=== PATIENT | male | born 1985 | race Caucasian/White ===

== ENCOUNTER 2022-10-16 08:56 | Outpatient (AMB) | payer OTHER, SELFPAY ==
--- NOTE | 2022-10-16 08:56 | A.OFFPC_ITS ---
Vital Signs 10/16/22 08:57 Height 5 ft 2 in Weight 113 lb BMI 20.7 BP 108/62 Blood Pressure Location Lt brachial Position Sitting Pulse 96 Pulse Source Pulse Oximeter Pulse Oximetry (%) 96 Oxygen Delivery Method Room Air Intake Visit Reasons: foot pain Left from [facility] 09/09/2022 Allergies duloxetine Allergy (Unknown, Verified 10/16/22 09:09) depression Medication List - Last Reconciled 10/16/22 by Odilon Rocha PA-C meloxicam 7.5 mg PO DAILY 30 days Tobacco use date assessed: 10/02/22 HPI foot pain Left from [facility] 09/09/2022 HPI Details That is is a 36-year-old male here today for follow-up on left foot trauma. Was seen previously by PCP and refer to Podiatry and physical therapy. Worker's Comp claim. He reports in August of 2022 having a left foot injury where a piece 150 lb she metal fell on his left foot. Was seen at a local urgent care and gotten x-rays without evidence of fractures. CT was done recently though unable to view images at this time. He is a still waiting podiatry evaluation and physical therapy. He reports he is unable to do his job at this time as he continues to have pain with full weight-bearing on his left foot. [facility] Family History Other FH: mental illness Social History Housing: Apartment Patient Tobacco Use Status: Current everyday Tobacco user e-Cigarette/Vaping Use: Never Used service: No Current occupational status: employed Cognitive needs: No Hearing needs: No Vision needs: No Questionnaire PHQ-9 Over the last 2 weeks, how often have you been bothered by any of the following problems? 1. Little interest or pleasure in doing things: several days 2. Feeling down, depressed, or hopeless: nearly every day 3. Trouble falling or staying asleep, or sleeping too much: nearly every day 4. Feeling tired or having little energy: more than half the days 5. Poor appetite or overeating: nearly every day 6. Feeling bad about yourself - or that you are a failure or have let yourself or your family down: several days 7. Trouble concentrating on things, such as reading the newspaper or watching television: several days 8. Moving or speaking so slowly that other people could have noticed. Or the opposite - being so fidgety or restless that you have been moving around a lot more than usual: not at all 9. Thoughts that you would be better off or of hurting yourself in some way: several days Total score: 15 Source: Developed by Drs. Joe You, Lorrie Ba, Jeronimo Kay and colleagues, with an educational shaye from [employer]. Thrive Questionnaire Date Thrive assessed: 10/02/22 I am a: Patient What is your living situation today?: I have a steady place to live Within the past 12 months, did the food you bought not last and you didn't have the money to get more?: Never true Within the past 12 months, did you worry whether your food would run out before you got money to buy more?: Never true Do you have trouble paying for medicines?: Yes Do you have trouble getting transportation to medical appointments?: Yes Do you have trouble paying your heating and electricity bill?: No Do you have trouble taking care of your child, family member or friend?: No Do you have trouble with day-to-day activities such as bathing, preparing meals, shopping, managing finances, etc.?: No Are you currently unemployed and looking for a job?: No Are you interested in more education?: No Currently or been in a relationship where the following occur: no concerns reported AUDIT C Alcohol Use Questionnaire (AUDIT-C) 1. How often do you have a drink containing alcohol?: Never 3. How often do you have six or more drinks on one occasion?: Never Total Score: 0 FARTUN-7 AMB Questionnaire FARTUN-7 Date FARTUN - 7 assessed: 10/02/22 Feeling nervous, anxious, or on edge: 3 = Nearly every day Not being able to stop or control worryin = Nearly every day Worrying too much about different things: 3 = Nearly every day Trouble relaxin = Nearly every day Being so restless that it is hard to sit still: 2 = More than half the days Becoming easily annoyed or irritable: 2 = More than half the days Feeling afraid as if something awful might happen: 3 = Nearly every day Total FARTUN-7 score (0-4 normal; 5-9 mild; 10-14 moderate; 15-21 severe): 19 Source: Developed by Drs. Joe You, Lorrie Ba, Jeronimo Kay and colleagues, with an educational shaye from [employer]. Review of Systems Const Denies headache(s) Eyes Denies loss of vision ENT Denies vertigo, Denies dizziness, Denies headache(s) and Denies sore throat Card Denies chest pain, Denies leg edema and Denies lightheadedness Resp Denies cough, Denies hemoptysis and Denies wheezing GI Denies abdominal pain, Denies melena, Denies constipation, Denies diarrhea and Denies vomiting Denies dysuria, Denies urinary frequency and Denies urinary urgency Musc Denies arthralgias, Denies joint swelling, Denies numbness and Denies tingling Neuro Denies Abnormal speech present, Denies behavioral changes, Denies vertigo, Denies dizziness, Denies headache(s), Denies loss of vision, Denies memory loss, Denies numbness and Denies tingling Psych Denies anxiety, Denies behavioral changes, Denies depression, Denies memory loss and Denies panic attacks Saud/Lymph Denies easy bleeding and Denies easy bruising Aller/Immun Denies wheezing Physical exam (Primary Care) Vital Signs: Last Vital Signs Pulse 96 10/16/22 08:57 BP 108/62 10/16/22 08:57 Pulse Ox 96 10/16/22 08:57 Oxygen Delivery Method Room Air 10/16/22 08:57 BMI result Body Mass Index 20.7 Tobacco/Smoking Status: Tobacco use Status Tobacco use date assessed 10/02/22 10/16/22 08:56 Patient Tobacco Use Status Current everyday Tobacco 10/16/22 08:56 e-Cigarette/Vaping Use Never Used 10/16/22 08:56 PHQ-9: PHQ-9 Score PHQ-9: Total score 15 10/16/22 09:31 Thrive Assessment: Date of Thrive Assessment Date Thrive assessed 10/02/22 10/16/22 08:56 Currently or been in a relationship where the following occur: no concerns reported Const General: healthy appearing, no acute distress, alert and awake Nutritional Appearance: well nourished Orientation/consciousness: oriented to person, oriented to place and oriented to time HENMT Ears: TM's normal bilaterally General nose exam: Normal nasal mucous membranes and turbinates present Eyes Conjunctivae: conjunctivae normal Sclerae: sclerae normal Pupils: Equal, round and reactive pupils present Neck Neck: Yes no lymphadenopathy and Yes no JVD Thyroid: Thyroid normal Carotids: no bruits Resp Effort & Inspection: normal respiratory effort and not tachypneic Auscultation: no crackles, no rales, no rhonchi and no wheezes Cardio Rate: regular rate Rhythm: regular rhythm Heart sounds: no murmurs and normal S1 and S2 GI Palpation (GI): Soft to palpation, nontender, no hepatomegaly and no splenomegaly Auscultation: normal bowel sounds Skin General skin exam: no rashes or lesions noted and dry skin Neuro General: oriented to person, oriented to place and oriented to time Cranial nerves: Yes Equal, round and reactive pupils present Speech: No Abnormal speech present Gait exam (Neuro): Normal gait present Motor exam (neuro): no tremor noted Extrem Right upper extremity: full ROM Left upper extremity: full ROM Right lower extremity: full ROM; no edema Left lower extremity: full ROM; no edema Ankle/foot/toe images: 1. PAIN REPORTED IN THE AREA OUTLINED. NO NOTABLE ERYTHEMA OR EDEMA IN THE MIDFOOT AT THIS TIME.. NO DISTAL VASCULAR OR NEUROLOGICAL COMPROMISE NOTED ON PHYSICAL EXAM Psych Mental Status: mental status grossly normal Speech and movement: Normal speech and movement present Affect: normal affect Attitude: cooperative Thought process: Normal thought process present Assessment and Plan Assessment & Plan (1) Strain of tendon of left foot: Code(s): S96.912A - Strain of unspecified muscle and tendon at ankle and foot level, left foot, initial encounter Plan: Patient's signs and symptoms most consistent with a left tendon injury secondary to blunt force trauma which has happened at work. No fractures on x-ray. Advised on conservative therapy such as elevation, cool compress, use of NSAIDs for swelling and pain. Will supply patient with air cast boot and advised to use crutches to minimize his weight-bearing on left foot to promote healing. Advised to follow-up with dietary for evaluation and recommendations are in returning to work. (2) Foot trauma: Code(s): S99.929A - Unspecified injury of unspecified foot, initial encounter Qualifiers: Encounter type: subsequent encounter Laterality: left Qualified Code(s): S99.922D - Unspecified injury of left foot, subsequent encounter Plan: As above, worker's Comp claim due to left crush injury. Awaiting to be evaluated by Podiatry Coding Level of Care Code Est Pt Level 3 (09157) Diagnoses Strain of tendon of left foot S96.912A Foot trauma S99.922D Encounter type: subsequent encounter Laterality: left
[2022-10-16 08:57] VITALS: BP 108/62; PULSE 96; O2SAT 96; BMI 20.7
== END 2022-10-16 09:42 | disposition home or self-care (01) ==
PROVIDERS: PCP Physician Assistant; Visit Provider Physician Assistant
DX: S96.912A Strain of unspecified muscle and tendon at ankle and foot level, left foot, initial encounter (principal); Z04.2 Encounter for examination and observation following work accident
CPT/HCPCS: 99213

== ENCOUNTER 2022-11-24 08:09 | Outpatient (AMB) | payer OTHER, SELFPAY ==
[2022-11-24 08:48] VITALS: BP 106/64; PULSE 94; TEMP 36.6; O2SAT 95; BMI 26.4
--- NOTE | 2022-11-24 08:48 | MHC.OFFWIV ---
Intake Vital Signs 11/24/22 08:48 Height 5 ft 2 in Weight 144 lb 4 oz BMI 26.4 BP 106/64 Blood Pressure Location Lt brachial Position Sitting Pulse 94 Pulse Source Pulse Oximeter Temp 98 F Temp Source Oral Pulse Oximetry (%) 95 Oxygen Delivery Method Room Air Intake Visit Reasons: EP Pain LT foot Intake Note: Pt is here for LT foot pain injury 0n 09/09/22, pt states bone in LT foot still hurts . Patient Tobacco Use Status: Current everyday Tobacco user Allergies duloxetine Allergy (Unknown, Verified 11/24/22 08:49) depression Do you need a note to return to daycare/school/sports/work: Yes HPI EP Pain LT foot HPI Details 36-year-old male presents to the office for a sick visit. Patient had a work injury on 09/09/2022. He injured his left foot and is MRI shows a swollen metatarsals. He has not returned to work since September 09. Today was his 1st a pack and patient is complaining of intense pain when he is driving. Pain is mostly over the left foot and worsens when he presses the clutch. Requesting pain medications. PFSH Family History Other FH: mental illness Social History Housing: Apartment Patient Tobacco Use Status: Current everyday Tobacco user e-Cigarette/Vaping Use: Never Used service: No Current occupational status: employed Cognitive needs: No Hearing needs: No Vision needs: No Physical Exam Vital Signs: Last Vital Signs Temp 98 F 11/24/22 08:48 Pulse 94 11/24/22 08:48 BP 106/64 11/24/22 08:48 Pulse Ox 95 11/24/22 08:48 Oxygen Delivery Method Room Air 11/24/22 08:48 BMI result Body Mass Index 26.4 Extrem Other: Left foot: No visible swelling. Tenderness on palpation of the 1st metatarsal. Assessment & Plan Assessment & Plan (1) Foot pain: Code(s): M79.673 - Pain in unspecified foot Plan: No pain medications provided. Patient was advised to follow-up with the doctor treating him and giving him work restrictions. Work restrictions provided till December 02 when he sees a the other physician again. Coding Level of Care Code Est Pt Level 3 (11667) Diagnoses Foot pain M79.673
== END 2022-11-24 10:20 | disposition home or self-care (01) ==
PROVIDERS: PCP Physician Assistant; Visit Provider Internal Medicine
DX: M79.673 Pain in unspecified foot (principal)
CPT/HCPCS: 99213

== ENCOUNTER 2022-12-30 08:00 | Outpatient (RCR) | payer OTHER, SELFPAY ==
--- NOTE | 2022-11-11 09:46 | MHC.PT.EP ---
[facility] [place] Office [place] Office [place] Office [address] [phone] F: [phone] F: [phone] F: [phone] F: [phone] Physical Therapy Plan of Care Date of Evaluation: Date of Surgery: none Diagnosis: pain in left foot. Assessment: Patient is a 36 year old R handed male who presents with s/s consistent with L foot pain after traumatic injury 2 months ago. He works with daily job demands including metal fabrication. Patient past medical history is unremarkable. Current impairments include pain, gait mechanics, ROM, strength, activity tolerance and functional mobility. Functional limitations include decreased ability to walk, stand, negotiate stairs, transfer and work.. Patient is motivated with good rehab potential. Skilled PT will address impairments and functional limitations in order to achieve goals. Frequency and Duration: The patient will be seen 2x/week for 5 weeks Short Term Goals: I with HEP - 2 weeks restore normal gait mechanics - 3 weeks PF/DF 4+/5 grossly - 3 weeks [employer] Goals: LEFS 60/80 - 5 weeks 2/10 max pain with daily activities - 5 weeks safe return to PLOF and all work duties - 5 weeks Treatment Plan: Modalities to reduce pain, spasms and effusion. Manual therapy to restore motion and function. Therapeutic exercise to improve strength and flexibility. Neuromuscular re-education for posture and balance. Therapeutic activities to return to functional activities of daily living. Electronically signed by: Sen Dillon, PT Please sign and return to therapist. Thank you for your referral.
--- NOTE | 2023-04-14 13:47 | MHC.PT.DC ---
[facility] [place] Office [place] Office [place] Office [address] Elin Boateng [address] [phone] F: [phone] F: [phone] F: [phone] F: [phone] Physical Therapy Discharge Report Diagnosis: pain in left foot. Date of Surgery: none Date of Evaluation: 11/11/22 Date of Discharge: 01/05/23 Treatments to Date: 7 Cancellations to Date: No Shows to Date: Discharge Status: Independent with HEP Discharge Summary: Pt unable to make meaningful progress per his report on his s/s. 12/30/22: pt still have difficulty sustaining meaningful functional progress per his report. we tried US today and will assess progress NV. 12/25/22: pt limiting progressing noting pain and locking in his ankle/foot. we have attempted progress a few times now with strength and more functional activities and he has stopped this attempst due to subjective complaints of pain. 12/11/22: we held on and were unable to progress today due to pain in foot and ankle per patient report. he still maintains very slow pace on upright bike. 12/08/22: pt seems to be limited by pain with all ex. we have had difficulty progressing due to self limiting related to pain. CP to finish. 11/24/22: pt has been sore since last visit. reluctant to try bike. agreed after edu and encouragement. able to perform all activities but does not he has pain with all exercise and activities. 11/20/22: pt in pain after 4 way ankle. educated to keep it pain free as best he can. progressed hip strength today. cautious with specific foot/ankle intervention Patient is a 36 year old R handed male who presents with s/s consistent with L foot pain after traumatic injury 2 months ago. He works with daily job demands including metal fabrication. Patient past medical history is unremarkable. Current impairments include pain, gait mechanics, ROM, strength, activity tolerance and functional mobility. Functional limitations include decreased ability to walk, stand, negotiate stairs, transfer and work.. Patient is motivated with good rehab potential. Skilled PT will address impairments and functional limitations in order to achieve goals. Electronically signed by: Sen Dillon PT Please sign and return to therapist. Thank you for your referral.
== END 2023-04-14 13:47 | disposition home or self-care (01) ==
LOC: HO.PTCHIC 08:00
PROVIDERS: PCP Physician Assistant; Visit Provider Internal Medicine
DX: M79.672 Pain in left foot (principal)
CPT/HCPCS: 97035; 97110; 97112; 97161

== ENCOUNTER 2023-06-25 09:00 | Outpatient (RCR) | payer OTHER, SELFPAY | END 2023-06-25 09:44 | disposition home or self-care (01) | LOC: HO.PTCHIC 09:00 | PROVIDERS: PCP Physician Assistant; Visit Provider Podiatrist Foot & Ankle Surgery | DX: M79.2 Neuralgia and neuritis, unspecified (principal) | CPT/HCPCS: 97110; 97161 ==

== ENCOUNTER 2024-05-06 11:30 | Outpatient (AMB) | payer OTHER, SELFPAY ==
[2024-05-06 11:32] VITALS: BP 102/68; PULSE 100; O2SAT 97
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
--- OUTSIDE RECORDS SUMMARY | 2024-05-06 12:33 | XMS_ITS | Clinical Summary ---
[facility] [address] [place] [address] Care Team Providers Care Contact Assembler Name Role Phone Unavailable Primary Care Provider Unavailabl e Social History Tobacco Use Types Packs/Day Years Used Date Smoking Tobacco: Never Assessed Sex and Gender Information Value Date Recorded Sex Assigned at Not on file Gender Identity Not on file Sexual Orientation Not on file Last Filed Vital Signs Vital Sign Reading Time Taken Comments Blood Pressure 102/67 09/26/2022 11:03 AM EDT Pulse 58 09/26/2022 11:03 AM EDT Temperature - - Respiratory Rate - - Oxygen Saturation - - Inhaled Oxygen Concentration - - Weight 52.2 kg (115 lb) 08/10/2023 9:21 AM EDT Height 165.1 cm (5' 5 ) 08/10/2023 9:21 AM EDT Body Mass Index 19.14 08/10/2023 9:21 AM EDT Plan of Treatment Health Maintenance Due Date Last Done Comments DTaP,Tdap,and Td Vaccines (1 - Tdap) 12/24/2006 Hepatitis B Vaccines (1 of 3 - 19+ 3-dose series) 12/24/2006 Cholesterol Screening (Lipid Panel) 04/28/2023 Depression Screening 04/28/2023 HIV Screening 04/28/2023 Hepatitis C Screening 04/28/2023 Social Influencers of Health Screening 04/28/2023 COVID-19 Vaccine ( - 2023-2 5 season) 2023 Influenza Vaccine (#1) 2023 HIB Vaccines Aged Out No longer eligi ble based on patient's age to complete this topic HPV Vaccines Aged Out No longer eligi ble based on patient's age to complete this topic Hepatitis A Vaccines Aged Out No long er eligible based on patient's age to complete this topic IPV Vaccines Aged Out No longer eligi ble based on patient's age to complete this topic MMR Vaccines Aged Out No longer eligi ble based on patient's age to complete this topic Meningococcal ACWY Vaccine Aged Out N o longer eligible based on patient's age to complete this topic Pneumococcal Vaccine: Pediat rics (0 to 5 Years) and At-Risk Patients (6 to 64 Years) Aged Out No longer eligible b ased on patient's age to complete this topic RSV Immunization Patients Un shelly 20 months Aged Out No longer eligible b ased on patient's age to complete this topic Varicella Vaccines Aged Out No longer eligible based on patient's age to complete this topic
--- OUTSIDE RECORDS SUMMARY | 2024-05-06 12:33 | XMS_ITS | Clinical Summary ---
Author Organization [facility] Address [address] [place] [address] Care Team Providers Care Parts Salvager Name Role Phone Unavailable Primary Care Provider Unavailabl e Allergies Active Allergy Reactions Criticality Noted Date Comments Duloxetine 09/09/2022 Had in his chart already from [facility] with high alert, pt denies any allergies today 09/09/22 Medications No known medications Social History Tobacco Use Types Packs/Day Years Used Date Smoking Tobacco: Never Assessed Sex and Gender Information Value Date Recorded Sex Assigned at Not on file Gender Identity Not on file Sexual Orientation Not on file Job Start Date Occupation Industry Not on file Not on file Not on file Last Filed Vital Signs Vital Sign Reading Time Taken Comments Blood Pressure 102/67 09/26/2022 11:03 AM EDT Pulse 58 09/26/2022 11:03 AM EDT Temperature 36.8 ??C (98.3 ??F) 09/09/2022 11:09 AM E DT Respiratory Rate - - Oxygen Saturation 99% 09/09/2022 11:09 AM EDT Inhaled Oxygen Concentration - - Weight 52.2 kg (115 lb) 09/09/2022 11:09 AM EDT Height 165.1 cm (5' 5 ) 09/09/2022 11:09 AM EDT Body Mass Index 19.14 09/09/2022 11:09 AM EDT Plan of Treatment Health Maintenance Due Date Last Done Comments Hepatitis B Vaccines (1 of 3 - 3-dose series) 1987 Hepatitis C Screening 1987 COVID-19 Vaccine (#1) 06/23/1988 Depression Screening 1999 Preventative Health Evaluation 12/24/2005 DTap / Tdap / Td (1 - Tdap) 12/24/2006 Influenza Vaccine (#1) 2023 Pneumococcal Vaccine Aged Out No long er eligible based on patient's age to complete this topic RSV Ped < 20 months Aged Out No longe r eligible based on patient's age to complete this topic
== END 2024-05-06 12:08 | disposition home or self-care (01) ==
PROVIDERS: PCP Internal Medicine
DX: S92.001A Unspecified fracture of right calcaneus, initial encounter for closed fracture (principal); M25.561 Pain in right knee; Z04.3 Encounter for examination and observation following other accident; Z13.220 Encounter for screening for lipoid disorders

== ENCOUNTER → 2024-05-06 11:30 | Outpatient (BNVA) | payer OTHER, SELFPAY | PROVIDERS: PCP Internal Medicine ==

== ENCOUNTER 2024-08-03 10:54 | Outpatient (AMB) | payer OTHER, SELFPAY ==
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
[2024-08-03 11:10] VITALS: BP 92/64; PULSE 104; TEMP 36.3; O2SAT 98; BMI 21.7
--- OUTSIDE RECORDS SUMMARY | 2024-08-03 12:15 | XMS_ITS | Clinical Summary ---
Author Organization [facility] Address [address] [place] [address] Care Team Providers Care Public Service Director Name Role Phone Unavailable Primary Care Provider Unavailabl e Social History Tobacco Use Types Packs/Day Years Used Date Smoking Tobacco: Never Assessed Sex and Gender Information Value Date Recorded Sex Assigned at Not on file Legal Sex Male 10:46 PM EST Gender Identity Not on file Sexual Orientation [...] - 2023-2 5 season) 2023 Influenza Vaccine (Season Ended) 2024 HIB Vaccines Aged Out No longer eligi [...] patient's age to complete this topic Meningococcal B Vaccine Aged Out No l onger eligible based on patient's age to complete [...]
--- OUTSIDE RECORDS SUMMARY | 2024-08-03 12:15 | XMS_ITS ---
Author Name [facility] Organization Unknown Encounters Encounter Type Encounter Reason Primary Diagnosis Location Date Ambulatory [facility] 01/08/2024 Ambulatory [facility] [place] 07/14/2023 Ambulatory [facility] 01/26/2023 Care Team Organization Name Specialty Phone Email Start Date End Da te [facility] 2024 [facility] PCP,No Primary Care 01/26/2023 06/15/2024 [facility] NO PCP Primary Care 01/26/2023 01/26/2023 [facility] 01/12/2023 01/12/2023
--- OUTSIDE RECORDS SUMMARY | 2024-08-03 12:15 | XMS_ITS | Clinical Summary ---
Author Organization [facility] Address [address] [place] [address] Care Team Providers Care Senior Backup Administrator Name Role Phone Unavailable Primary Care Provider Unavailabl e Allergies Active Allergy Reactions Criticality Noted Date Comments Duloxetine 09/09/2022 Had in his chart already from [facility] with high alert, pt denies any allergies [...]
== END 2024-08-03 11:59 | disposition home or self-care (01) ==
LOC: HO.HMCH 10:54
PROVIDERS: PCP Physician Assistant; Visit Provider Physician Assistant
DX: S92.011D Displaced fracture of body of right calcaneus, subsequent encounter for fracture with routine healing (principal); M25.371 Other instability, right ankle

== ENCOUNTER → 2024-08-03 10:54 | Outpatient (BNVA) | payer OTHER, SELFPAY | PROVIDERS: PCP Physician Assistant; Visit Provider Physician Assistant | DX: S92.011D Displaced fracture of body of right calcaneus, subsequent encounter for fracture with routine healing (principal); M25.371 Other instability, right ankle | CPT/HCPCS: 96127; 99212 ==

== ENCOUNTER 2024-09-08 13:36 | Outpatient (REF) | payer OTHER, SELFPAY ==
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
--- OUTSIDE RECORDS SUMMARY | 2024-09-08 15:55 | XMS_ITS | Clinical Summary ---
Author Organization [facility] Address [address] [place] [address] Care Team Providers Care Behavioral Health Assistant Name Role Phone Unavailable Primary Care Provider Unavailabl e Allergies Active Allergy Reactions Criticality Noted Date Comments Duloxetine 09/09/2022 Had in his chart already from [facility] with high alert, pt denies any [...] Td (1 - Tdap) 12/24/2006 Influenza Vaccine (Season Ended) 2024 Pneumococcal Vaccine Aged Out No long er eligible based on patient's age to complete this topic RSV Ped < 20 months Aged Out No longe r eligible based on patient's age to complete this topic
== END 2024-09-08 13:37 | disposition home or self-care (01) ==
LOC: HO.MRI 13:36
PROVIDERS: PCP Physician Assistant; Visit Provider Physician Assistant
DX: M25.371 Other instability, right ankle (principal); S92.011D Displaced fracture of body of right calcaneus, subsequent encounter for fracture with routine healing
CPT/HCPCS: 73718; 73721

== ENCOUNTER → 2024-09-08 13:43 | Outpatient (BNV) | payer OTHER, SELFPAY | PROVIDERS: PCP Physician Assistant; Visit Provider Radiology Diagnostic Radiology | DX: G57.81 Other specified mononeuropathies of right lower limb (principal); S99.911A Unspecified injury of right ankle, initial encounter; S99.921A Unspecified injury of right foot, initial encounter; V89.2XXA Person injured in unspecified motor-vehicle accident, traffic, initial encounter | CPT/HCPCS: 73718; 73721 ==

== ENCOUNTER 2024-12-14 09:05 | Outpatient (AMB) | payer OTHER, SELFPAY ==
--- NOTE | 2024-12-14 09:16 | MHC.PC.OV ---
Vital Signs 12/14/24 09:17 Height 5 ft 2 in Weight 111 lb 8 oz BMI 20.4 BP 120/70 Blood Pressure Location Lt brachial Position Sitting Pulse 83 Pulse Source Pulse Oximeter Temp 97.1 F Temp Source Temporal Artery Scan Pulse Oximetry (%) 97 Oxygen Delivery Method Room Air Intake Visit Reasons: PE Intake Note: Patient is here today for a physical. Rn Ccu Required: No Social Media Designer: Not Required per policy Accompanied by: Self / Same As Patient Allergies duloxetine Allergy (Unknown, Verified 12/14/24 09:28) depression Medication List - Last Reconciled 12/14/24 by Odilon Rocha PA-C acetaminophen mg PO Q4-6H naproxen 500 mg PO BID PRN 30 days Tobacco use date assessed: 12/14/24 Dental Screening Dental Screen Date: 05/06/24 HPI PE HPI Details Patient is a 38-year-old male here today for an annual physical. Today we discussed his mental health-- > The patient has a history of anxiety disorder, which has been challenging to manage with previous therapies and medications, including duloxetine, which was particularly ineffective. He reports using tobacco as a coping mechanism for anxiety, smoking more than a pack a day, which sometimes causes nausea. He has attempted mental health therapy and medication in the past but found them unhelpful, leading to a reluctance to pursue further treatment. .. 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 He experiences pins and needles sensations during certain movements, which are attributed to this condition. Additionally, the patient has a grade 1 ligament sprain with minimal residual bone bruises in the talar dome and tibial plafond, resulting from trauma. He was non-weightbearing for two to three months and continues to have difficulty walking, which contributes to his anxiety. .. Tobacco dependency: Patient reports he has been smoking a lot more lately due to his anxiety, he is interested in trying nicotine replacement Vaccines: UTD tetanus ( 01/2024) and considering flu vaccine [facility] Surgical History History of foot surgery Family History Other FH: mental illness Social History (Updated 12/14/24 @ 09:32 by Odilon Rocha PA-C) Housing: Apartment Alcohol intake: never Patient Tobacco Use Status: Current everyday Tobacco user Tobacco use type: Cigarette Cigarette Packs Per Day: 1 Cigarettes Per Day: 20 e-Cigarette/Vaping Use: Never Used Second Hand Smoke Exposure: Yes service: No Current occupational status: unemployed Cognitive needs: No Hearing needs: No Vision needs: No Questionnaire PHQ-9 Over the last 2 weeks, how often have you been bothered by any of the following problems? 1. Little interest or pleasure in doing things: nearly every day 2. Feeling down, depressed, or hopeless: nearly every day 3. Trouble falling or staying asleep, or sleeping too much: nearly every day 4. Feeling tired or having little energy: not at all 5. Poor appetite or overeating: nearly every day 6. Feeling bad about yourself - or that you are a failure or have let yourself or your family down: nearly every day 7. Trouble concentrating on things, such as reading the newspaper or watching television: nearly every day 8. Moving or speaking so slowly that other people could have noticed. Or the opposite - being so fidgety or restless that you have been moving around a lot more than usual: not at all 9. Thoughts that you would be better off or of hurting yourself in some way: not at all Total score: 18 Depression Screening Interpretation: Positive Depression Screening Follow-up: Existing condition and Declines treatment Depression Screening Done: Yes 87698 - PHQ-9 Billing: Yes Source: Developed by Drs. Joe You, Lorrie Ba, Jeronimo Kay and colleagues, with an educational shaye from [employer]. Thrive Questionnaire Date Thrive assessed: 08/03/24 I am a: Patient What is your living situation today?: I choose not to answer this question Within the past 12 months, did the food you bought not last and you didn't have the money to get more?: Never true Within the past 12 months, did you worry whether your food would run out before you got money to buy more?: Never true Do you have trouble paying for medicines?: No Do you have trouble getting transportation to medical appointments?: No Do you have trouble paying your heating and electricity bill?: No Do you have trouble taking care of your child, family member or friend?: I choose not to answer this question Do you have trouble with day-to-day activities such as bathing, preparing meals, shopping, managing finances, etc.?: Yes Are you currently unemployed and looking for a job?: Yes Are you interested in more education?: No Please select the resources that you would like help with: Housing/Senior Living Currently or been in a relationship where the following occur: No concerns reported THRIVE Score: 0 FARTUN-7 AMB Questionnaire FARTUN-7 Date FARTUN - 7 assessed: 12/14/24 Feeling nervous, anxious, or on edge: 3 = Nearly every day Not being able to stop or control worryin = Nearly every day Worrying too much about different things: 3 = Nearly every day Trouble relaxin = Nearly every day Being so restless that it is hard to sit still: 3 = Nearly every day Becoming easily annoyed or irritable: 3 = Nearly every day Feeling afraid as if something awful might happen: 3 = Nearly every day Total FARTUN-7 score (0-4 normal; 5-9 mild; 10-14 moderate; 15-21 severe): 21 Source: Developed by Drs. Joe You, Lorrie Ba, Jeronimo Kay and colleagues, with an educational shaye from [employer]. FARTUN-7 Assessment Billing FARTUN-7 Assessment Tool: FARTUN-7 Assessment 84874 Review of Systems Const Denies body aches, Denies chills, Denies excessive sweating, Denies fatigue, Denies fever(s) and Denies headache(s) Eyes Denies blurry vision ENT Denies dysphagia, Denies vertigo, Denies dizziness, Denies headache(s), Denies hearing loss and Denies tinnitus Card Denies chest pain, Denies chest pain with activity, Denies syncope, Denies irregular heart rhythm and Denies dyspnea Resp Denies chest congestion, Denies cough, Denies hemoptysis, Denies dyspnea and Denies wheezing GI Denies abdominal pain, Denies melena, Denies hematochezia, Denies coffee ground emesis, Denies dysphagia, Denies diarrhea, Denies nausea and Denies vomiting Denies difficulty urinating, Denies dysuria, Denies urinary frequency, Denies urinary hesitancy and Denies urinary urgency Musc Denies arthralgias, Denies limited range of motion, Denies muscle cramps and Denies muscle weakness Skin/Breast Denies rash and Denies skin ulcer Neuro Denies Abnormal speech present, Denies confusion, Denies vertigo, Denies dizziness, Denies syncope, Denies headache(s), Denies memory loss and Denies seizure-like activity Psych Denies anxiety, Denies confusion, Denies depression, Denies memory loss, Denies panic attacks and Denies paranoia Endo Denies excessive sweating, Denies fatigue, Denies flushing, Denies polydipsia and Denies polyuria Aller/Immun Denies wheezing Physical exam (Primary Care) Vital Signs: Last Vital Signs Temp 97.1 F 12/14/24 09:17 Pulse 83 12/14/24 09:17 BP 120/70 12/14/24 09:17 Pulse Ox 97 12/14/24 09:17 Oxygen Delivery Method Room Air 12/14/24 09:17 BMI result Body Mass Index 20.4 BMI Assessment/Plan discussion: High BMI High, discussed plan: lifestyle, weight reduction, dietary and physical activity Tobacco/Smoking Status: Tobacco use Status Tobacco use date assessed 12/14/24 12/14/24 09:26 Patient Tobacco Use Status Current everyday Tobacco 12/14/24 09:32 Tobacco use type Cigarette 12/14/24 09:32 e-Cigarette/Vaping Use Never Used 12/14/24 09:32 Are you ready to quit: Yes Tobacco cessation counseling provided: Yes Items discussed: Nicotine replacement Relapse Prevention: discussed the importance of a supportive environment, discussed negative mood or depression after quitting, weight gain after smoking is common and discussed dietary, exercise and/or lifestyle changes Number of minutes spent counselin CPT code: 33770 - 4-10 Minutes PHQ-9: PHQ-9 Score PHQ-9: Total score 18 12/14/24 09:34 Depression Screening Interpretation: Positive Depression Screening Follow-up: Existing condition and Declines treatment Thrive Assessment: Date of Thrive Assessment Date Thrive assessed 08/03/24 12/14/24 09:26 Currently or been in a relationship where the following occur: No concerns reported Const General: cooperative, comfortable, no acute distress, alert and awake; No confusion Orientation/consciousness: oriented to person, oriented to place, patient oriented x3 and No confusion HENMT Head: Yes normocephalic Ears: external ears normal and TM's normal bilaterally Face and sinus: No sinus tenderness Mouth: Normal oral and palatal mucosa present and tongue normal Teeth and gingiva: dentition normal and gingiva normal Throat: Yes posterior oropharynx normal, Yes tonsils normal and Yes uvula midline Eyes Conjunctivae: conjunctivae normal Sclerae: sclerae normal Pupils: Equal, round and reactive pupils present EOM: EOMs intact bilaterally Direct Ophthalmoscopy: No no photophobia Neck Neck: Yes no lymphadenopathy, No tender and Yes no JVD Thyroid: Thyroid normal Carotids: no bruits Chest Chest palpation & inspection: no tenderness Resp Effort & Inspection: normal respiratory effort, no audible wheezes, not labored and no stridor Auscultation: no crackles, no rales, no rhonchi and no wheezes Cardio Jugular venous distension: no JVD Rate: regular rate, not bradycardic and not tachycardic Rhythm: regular rhythm Bruits: no carotid bruits Peripheral pulses: Peripheral pulses 2+ throughout GI Inspection: Yes normal to inspection, No abdominal wall ecchymosis and No visible herniation Palpation (GI): Soft to palpation, nontender, no guarding, not rigid and No hepatosplenomegaly present Auscultation: normoactive bowel sounds General: Yes no CVA tenderness Back/Spine/Pelvis Back: no CVA tenderness and No back tenderness Cervical Spine: cervical ROM normal Thoracic/Lumbar Spine: thoracic and lumbar spine normal to inspection, straight leg raise negative bilaterally, No thoraco-lumbar ROM limited and No lumbar spinal tenderness Skin Lesions: no lesions Rashes: no rashes Wounds: no wounds Neuro General: oriented to person, oriented to place, patient oriented x3, CN's II-XI intact bilaterally and No confusion Cranial nerves: Yes Equal, round and reactive pupils present and Yes Normal accommodation reflex present Cognition (Neuro): normal cognition Speech: No Abnormal speech present Gait exam (Neuro): Normal gait present Motor exam (neuro): 5/5 motor strength present throughout Extrem Right upper extremity: full ROM; no cyanosis Left upper extremity: full ROM; no cyanosis Right lower extremity: no edema Left lower extremity: no edema Psych Appearance: grossly normal Mental Status: mental status grossly normal Affect: normal affect Attitude: cooperative Thought process: Normal thought process present Coding Level of Care Code Est Pt Prev Care 18-39y(87891) Diagnoses Annual physical exam Z00.00 Tobacco dependence F17.200 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 FARTUN (generalized anxiety disorder) F41.1 Additional Codes FARTUN-7 Assessment Billing - FARTUN-7 Assessment Tool: FARTUN-7 Assessment 69253 ([id number]) PHQ-9 - 95396 - PHQ-9 Billing: Yes ([id number]) Vital Signs *Quality* - CPT code: 95580 - 4-10 Minutes ([id number]) Assessment & Plan Assessment & Plan (1) Annual physical exam: Code(s): Z00.00 - Encounter for general adult medical examination without abnormal findings Category: Medical Plan: As per HPI (2) Tobacco dependence: Code(s): F17.200 - Nicotine dependence, unspecified, uncomplicated Category: Medical Plan: Nicotine replacement therapy with patches will be initiated to aid in smoking cessation. The patient will be encouraged to reduce smoking to improve overall health and facilitate healing of the tendon injury. (3) Neuropathy of right ankle: Code(s): G57.91 - Unspecified mononeuropathy of right lower limb Category: Medical Plan: The patient will continue physical therapy to manage symptoms associated with inferior calcaneal nerve entrapment. Smoking cessation is recommended to aid in recovery. (4) FARTUN (generalized anxiety disorder): Code(s): F41.1 - Generalized anxiety disorder Category: Medical Plan: The patient will be started on bupropion SR to address both anxiety and smoking cessation, with a follow-up in four weeks to assess efficacy and tolerability. Mental health therapy will be arranged via telehealth to overcome transportation barriers. Orders: Referrals Counseling Referral F41.1 - Generalized anxiety disorder Medications: New nicotine 1 patch transdermal DAILY 14 ea 0RF 14 days F17.200 - Nicotine dependence, unspecified, uncomplicated bupropion HCl SR (Wellbutrin SR) 150 mg PO DAILY 30 tabs 1RF 30 days F17.200 - Nicotine dependence, unspecified, uncomplicated nicotine 1 patch transdermal DAILY 14 ea 0RF 14 days F17.200 - Nicotine dependence, unspecified, uncomplicated
[2024-12-14 09:17] VITALS: BP 120/70; PULSE 83; TEMP 36.2; O2SAT 97; BMI 20.4
--- OUTSIDE RECORDS SUMMARY | 2024-12-14 10:40 | XMS_ITS | Clinical Summary ---
Author Organization [facility] Address [address] [place] [address] Care Team Providers Care Latex Caster Name Role Phone Unavailable Primary Care Provider [...] series) 12/24/2006 Cholesterol Screening (Lipid Panel) 04/28/2023 HIV Screening 04/28/2023 Hepatitis C Screening 04/28/2023 Social Influencers of Health Screening 04/28/2023 Depression Screening 03/30/2024 COVID-19 Vaccine ( - 2023-2 5 season) 2024 Influenza Vaccine (#1) 2024 HIB Vaccines Aged Out No longer [...] 5 Years) and At-Risk Patients (6 to 49 Years) Aged Out No longer eligible b ased on patient's age to complete this topic RSV Immunization Patients Un shelly 20 months Aged Out No longer eligible b ased on patient's age to complete this topic Varicella Vaccines Aged Out No longer eligible based on patient's age to complete this topic
--- OUTSIDE RECORDS SUMMARY | 2024-12-14 10:40 | XMS_ITS | Clinical Summary ---
Author Organization [facility] Address [address] [place] [address] Care Team Providers Care Professor Of Art History Name Role Phone Unavailable Primary Care Provider Unavailabl e Allergies Active Allergy Reactions Criticality Noted Date Comments Duloxetine 09/09/2022 Had in his chart already from [facility] with high alert, pt denies any [...] 58 09/26/2022 11:03 AM EDT Temperature 36.8 C (98.3 F) 09/09/2022 11:09 AM EDT Respiratory Rate - - Oxygen Saturation 99% [...] (1 - Tdap) 12/24/2006 Influenza Vaccine (#1) 2024 Pneumococcal Vaccine Aged Out No long er eligible based on patient's age to complete this topic RSV Ped < 20 months Aged Out No longe r eligible based on patient's age to complete this topic
--- OUTSIDE RECORDS SUMMARY | 2024-12-14 10:40 | XMS_ITS ---
Author Name [facility] Organization Unknown Encounters Encounter Type Encounter Reason Primary Diagnosis Location Date Ambulatory [facility] 01/08/2024 Ambulatory [facility] [place] 07/14/2023 Ambulatory [facility] 01/26/2023 Care Team Organization Name Specialty Phone Email Start Date End Da te [facility] 2024 [facility] PCP,No Primary Care 01/26/2023 06/15/2024 [facility] NO PCP Primary Care 01/26/2023 01/26/2023 [facility] 01/12/2023 01/12/2023
== END 2024-12-14 09:56 | disposition home or self-care (01) ==
LOC: HO.HMCH 09:06
PROVIDERS: PCP Physician Assistant; Visit Provider Physician Assistant
DX: Z00.00 Encounter for general adult medical examination without abnormal findings (principal); F17.200 Nicotine dependence, unspecified, uncomplicated; G57.91 Unspecified mononeuropathy of right lower limb; F41.1 Generalized anxiety disorder

== ENCOUNTER → 2024-12-14 09:05 | Outpatient (BNVA) | payer OTHER, SELFPAY | PROVIDERS: PCP Physician Assistant; Visit Provider Physician Assistant | DX: Z00.00 Encounter for general adult medical examination without abnormal findings (principal); F41.1 Generalized anxiety disorder; G57.91 Unspecified mononeuropathy of right lower limb; F17.210 Nicotine dependence, cigarettes, uncomplicated | CPT/HCPCS: 96127; 99395 ==

== ENCOUNTER 2025-01-11 13:10 | Outpatient (AMB) | payer OTHER, SELFPAY ==
--- NOTE | 2025-01-11 13:10 | MHC.PC.OV ---
Intake Visit Reasons: 4 week meds Community Manager Required: No Gastroenterology Nurse Practitioner: Not Required per policy Accompanied by: Self / Same As Patient Allergies duloxetine Allergy (Unknown, Verified 01/11/25 13:24) depression Medication List - Last Reconciled 01/11/25 by Odilon Rocha PA-C acetaminophen mg PO Q4-6H bupropion HCl SR (Wellbutrin SR) 150 mg PO DAILY 30 days nicotine 1 patch transdermal DAILY 14 days nicotine 1 patch transdermal DAILY 14 days Tobacco use date assessed: 12/14/24 Dental Screening Dental Screen Date: 05/06/24 HPI 4 week meds HPI Details Patient is a 39-year-old male being evaluated today via telephone. At last visit we discussed his anxiety and his smoking. 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 We have been trialing Wellbutrin which has helped him reduce his smoking a bit though his anxiety is over powering and continues to smoke quite a bit. He feels that the Wellbutrin is not effective on his anxiety at all and will like to try a new medication to help him with his anxiety. He has been referred to counseling though has not been able to get an intake as he has been having trouble with transportation. [facility] Surgical History History of foot surgery Family History Other FH: mental illness Social History Housing: Apartment Alcohol intake: never Patient Tobacco Use Status: Current everyday Tobacco user Tobacco use type: Cigarette Cigarette Packs Per Day: 1 Cigarettes Per Day: 15 e-Cigarette/Vaping Use: Never Used Second Hand Smoke Exposure: Yes service: No Current occupational status: unemployed Cognitive needs: No Hearing needs: No Vision needs: No Questionnaire Thrive Questionnaire Date Thrive assessed: 08/03/24 FARTUN-7 AMB Questionnaire FARTUN-7 Date FARTUN - 7 assessed: 12/14/24 Source: Developed by Drs. Joe You, Lorrie Ba, Jeronimo Kay and colleagues, with an educational shaye from [employer]. Review of Systems Const Denies headache(s) Eyes Denies loss of vision ENT Denies vertigo, Denies dizziness, Denies headache(s) and Denies sore throat Card Denies chest pain, Denies leg edema and Denies lightheadedness Resp Denies cough, Denies hemoptysis and Denies wheezing GI Denies abdominal pain, Denies melena, Denies constipation, Denies diarrhea and Denies vomiting Denies dysuria, Denies urinary frequency and Denies urinary urgency Musc Denies arthralgias, Denies joint swelling, Denies numbness and Denies tingling Neuro Denies behavioral changes, Denies vertigo, Denies dizziness, Denies headache(s), Denies loss of vision, Denies memory loss, Denies numbness and Denies tingling Psych Reports anxiety, Denies behavioral changes, Denies depression, Denies memory loss and Reports panic attacks Saud/Lymph Denies easy bleeding and Denies easy bruising Aller/Immun Denies wheezing Physical exam (Primary Care) Tobacco/Smoking Status: Tobacco use Status Tobacco use date assessed 12/14/24 01/11/25 13:13 Patient Tobacco Use Status Current everyday Tobacco 01/11/25 13:13 Tobacco use type Cigarette 01/11/25 13:13 e-Cigarette/Vaping Use Never Used 01/11/25 13:13 Thrive Assessment: Date of Thrive Assessment Date Thrive assessed 08/03/24 01/11/25 13:13 Telehealth Telehealth Telehealth Platform: Telephone Location of provider rendering services: practice address Location of patient: address on file Patient Identification confirmed using: Name, : Yes Telehealth method: voice only Patient verbally consented to treatment: Yes Patient verbally consented to billing insurance company: Yes Patient informed of any privacy concerns related to visit: Yes Minutes spent on Phone/Video with Pt.: 12 Coding Level of Care Code Tele Est Pt Level 3 (45275) Diagnoses FARTUN (generalized anxiety disorder) F41.1 Tobacco dependence F17.200 Assessment & Plan Assessment & Plan (1) FARTUN (generalized anxiety disorder): Code(s): F41.1 - Generalized anxiety disorder Category: Medical Plan: Patient has started Wellbutrin SR and felt that he has reduced his smoking a bit though was anxiety is still the same. 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 He has been called by the mental health services though has not been able to make it in due to transplantation issues. (2) Tobacco dependence: Code(s): F17.200 - Nicotine dependence, unspecified, uncomplicated Category: Medical Plan: Patient continues to smoke though had not as much as he was. He feels it Wellbutrin is somewhat helpful in his smoking though again his anxiety is reported as over powering He would like to try different medication for his anxiety Medications: New sertraline 50 mg PO DAILY 30 tabs 1RF 30 days F41.1 - Generalized anxiety disorder Changed From nicotine 1 patch transdermal DAILY 14 days 14 ea 0RF F17.200 - Nicotine dependence, unspecified, uncomplicated To nicotine 1 patch transdermal DAILY 28 ea 0RF 28 days F17.200 - Nicotine dependence, unspecified, uncomplicated Discontinued bupropion HCl SR (Wellbutrin SR) Discontinued Reason: Doctor's Order 150 mg PO DAILY 30 days 30 tabs 1RF F17.200 - Nicotine dependence, unspecified, uncomplicated
--- OUTSIDE RECORDS SUMMARY | 2025-01-11 16:50 | XMS_ITS | Clinical Summary ---
Author Organization [facility] Address [address] [place] [address] Care Team Providers Care Fuels Sales Representative Name Role Phone Unavailable Primary Care Provider Unavailabl e Allergies Active Allergy Reactions Criticality Noted Date Comments Duloxetine 09/09/2022 Had in his chart already from [facility] with high alert, pt denies any allergies [...]
--- OUTSIDE RECORDS SUMMARY | 2025-01-11 16:50 | XMS_ITS | Clinical Summary ---
[facility] Address [address] [place] [address] Care Team Providers Care Underwear Trimmer Name Role Phone Unavailable Primary Care Provider [...] of 3 - 19+ 3-dose series) 12/24/2006 HPV Vaccines (1 - 3-dose SCD M series) 12/24/2014 Cholesterol Screening (Lipid Panel) 04/28/2023 HIV Screening 04/28/2023 Hepatitis C Screening 04/28/2023 Social Influencers of Health Screening 04/28/2023 Depression Screening 03/30/2024 COVID-19 Vaccine ( - 2023-2 5 season) 2024 Influenza Vaccine (#1) 2024 RSV Immunization Adult Patie nts (1 - 1-dose 75+ series) 12/24/2062 HIB Vaccines Aged Out No longer eligi [...]
== END 2025-01-11 14:23 | disposition home or self-care (01) ==
LOC: HO.HMCH 13:10
PROVIDERS: PCP Physician Assistant; Visit Provider Physician Assistant
DX: F41.1 Generalized anxiety disorder (principal); F17.200 Nicotine dependence, unspecified, uncomplicated